=== PATIENT | female | born 1940 | race Caucasian/White ===

== ENCOUNTER 2020-06-22 14:52 | Emergency (ER) | payer OTHER ==
[~2020-06-22] VITALS: Ht 160 cm; Wt 45.4 kg
== END 2020-06-22 15:56 | disposition home or self-care (01) ==
LOC: ER 14:52
DX: G89.11 Acute pain due to trauma (principal); M54.5 Low back pain

== ENCOUNTER 2020-07-04 17:40 | Emergency (ER) | payer OTHER ==
[~2020-07-04] VITALS: Ht 160 cm; Wt 45.4 kg
[2020-07-04] MEDS ORDERED: DICLOFENAC SODI75 MG PO (18:22)
== END 2020-07-04 18:32 | disposition home or self-care (01) ==
LOC: ER 17:40
DX: G89.11 Acute pain due to trauma (principal); M54.89 Other dorsalgia